=== PATIENT | male | born 1935 | race Caucasian/White ===

== ENCOUNTER 2018-02-14 12:08 | Inpatient (IN) | payer MEDICARE, OTHER ==
[~2018-02-14] VITALS: Ht 170.2 cm; Wt 104.0 kg
[2018-02-14] MEDS ORDERED: BENA20TA2 PO (14:18)
[2018-02-14] MEDS ORDERED: AMLO10TA2 PO (14:18)
[2018-02-14] MEDS ORDERED: BISO5TAB2 PO (14:18)
[2018-02-14] MEDS ORDERED: CLOP75TA PO (14:18)
[2018-02-14] MEDS ORDERED: FURO20TA3 PO (14:18)
[2018-02-14] MEDS ORDERED: ASPI-496 PO (14:18)
[2018-02-14] MEDS ORDERED: ALLO300T PO (14:18)
[2018-02-14] MEDS ORDERED: HYDR-3237 PO (14:18)
[2018-02-14] MEDS ORDERED: ISOS1TAB2 PO (14:18)
[2018-02-14] MEDS ORDERED: ATOR-2 PO (14:18)
[2018-02-14 14:42] LABS: BASOPHILS # (AUTO) 0.02 x10^3/uL (0-0.1); BASOPHILS % (AUTO) 0 % (0-1); EOSINOPHILS % (AUTO) 3 % (1-7); LYMPHOCYTES % (AUTO) 26 % (22-44); MD NO; MEAN CORPUSCULAR HEMOGLOBIN 28.7 pg (27.5-34.5); MEAN CORPUSCULAR VOLUME 87.2 fL (81-97); MEAN PLATELET VOLUME 7.4 fL (7.4-10.4); MONOCYTES # (AUTO) 0.73 x10^3/uL (0.2-0.8); MONOCYTES % (AUTO) 11 % (2-9); NEUTROPHILS # (AUTO) 3.96 x10^3/uL (1.8-6.8); NEUTROPHILS % (AUTO) 60 % (42-75); PLATELET COUNT 240 x10^3/uL (130-400); RED BLOOD COUNT 4.27 x10^6/uL (4.38-5.82); RED CELL DISTRIBUTION WIDTH 14.9 % (9.4-14.8)
[2018-02-14 14:53] LABS: INTERNATIONAL NORMALIZED RATIO 1.02 (0.93-1.1); PROTHROMBIN TIME 10.5 Seconds (9.6-11.5)
[2018-02-14 14:55] LABS: ALANINE AMINOTRANSFERASE 17 U/L (12-78); ALBUMIN 3.6 g/dL (3.4-5.0); ANION GAP 8 mmol/L (5-15); CHLORIDE 107 mmol/L (98-107); CREATININE 2.96 mg/dL (0.7-1.3)
[2018-02-14 14:57] LABS: ALKALINE PHOSPHATASE 77 U/L (45-117); BILIRUBIN,TOTAL 0.5 mg/dL (0.2-1.0); TOTAL PROTEIN 7.1 g/dL (6.4-8.2)
[2018-02-14] MEDS ORDERED: SODIUM CHLORIDE 0.9%, 500ML IVBOLUS ONE (15:30)
[2018-02-14] MEDS: SODIUM CHLORIDE 0.9% 1,000 ML IV SCH (17:27)
[2018-02-14] MEDS ORDERED: ONDANSETRON 2MG/ML, 2ML IVPush PRN (17:30)
[2018-02-14] MEDS ORDERED: hydrALAzine 20 MG/ML, 1ML IVPush PRN (17:30)
[2018-02-14] MEDS ORDERED: ACETAMINOPHEN 325 MG TABLET PO PRN (17:30)
[2018-02-14] MEDS: HEPARIN 5,000 UNITS/ML, 1ML SQ SCH (17:36)
[2018-02-14 17:38] VITALS: BP 149/74
[2018-02-14 19:34] VITALS: BP 106/52
[2018-02-14 19:47] VITALS: BP 106/55
[2018-02-14] MEDS ORDERED: ATORVASTATIN 80 MG TABLET PO SCH (21:00)
[2018-02-14] MEDS ORDERED: ATORVASTATIN 20 MG TABLET PO SCH ×2 (21:10→21:15)
[2018-02-15] VITALS (8 sets, daily range): BP systolic 119–160; BP diastolic 69–81
[2018-02-15 01:24] LABS: MICROSCOPIC NOT IND
[2018-02-15] MEDS: HEPARIN 5,000 UNITS/ML, 1ML SQ SCH ×2 (01:25→08:24)
[2018-02-15 01:27] LABS: CULTURE INDICATED? NO
[2018-02-15 01:29] LABS: CREATININE,URINE RANDOM 71.3 mg/dL
[2018-02-15 06:05] LABS: BASOPHILS # (AUTO) 0.02 x10^3/uL (0-0.1); BASOPHILS % (AUTO) 0 % (0-1); EOSINOPHILS # (AUTO) 0.23 x10^3/uL (0-0.4); EOSINOPHILS % (AUTO) 4 % (1-7); LYMPHOCYTES # (AUTO) 1.45 x10^3/uL (1-3.4); LYMPHOCYTES % (AUTO) 25 % (22-44); MD NO; MEAN CORPUSCULAR HEMOGLOBIN 28.9 pg (27.5-34.5); MEAN CORPUSCULAR HGB CONC 32.6 g/dL (33.2-36.2); MEAN CORPUSCULAR VOLUME 88.4 fL (81-97); MEAN PLATELET VOLUME 7.6 fL (7.4-10.4); MONOCYTES # (AUTO) 0.65 x10^3/uL (0.2-0.8); MONOCYTES % (AUTO) 12 % (2-9); NEUTROPHILS # (AUTO) 3.34 x10^3/uL (1.8-6.8); NEUTROPHILS % (AUTO) 59 % (42-75); PLATELET COUNT 200 x10^3/uL (130-400); RED BLOOD COUNT 4.19 x10^6/uL (4.38-5.82); RED CELL DISTRIBUTION WIDTH 15.1 % (9.4-14.8)
[2018-02-15 06:14] LABS: ANION GAP 6 mmol/L (5-15); CALCIUM 8.4 mg/dL (8.5-10.1); CHLORIDE 108 mmol/L (98-107); CREATININE 2.43 mg/dL (0.7-1.3)
[2018-02-15] MEDS: SODIUM CHLORIDE 0.9% 1,000 ML IV SCH (08:25)
[2018-02-15] MEDS ORDERED: BENAZEPRIL 20 MG TABLET PO SCH (09:00)
[2018-02-15] MEDS ORDERED: ASPIRIN 81 MG TABLET EC PO SCH (09:00)
[2018-02-15] MEDS ORDERED: CLOPIDOGREL 75 MG TABLET PO SCH (09:00)
[2018-02-15] MEDS ORDERED: AMLODIPINE 5 MG TABLET PO SCH (09:00)
== END 2018-02-15 16:40 | disposition home or self-care (01) | DRG 73 ==
LOC: ED 14:42 → EDIP 15:28 → 4EST 16:52
PROVIDERS: ADMIT Internal Medicine Pulmonary Disease; ATTEND Internal Medicine Pulmonary Disease
DX: G90.9 Disorder of the autonomic nervous system, unspecified (principal); N17.0 Acute kidney failure with tubular necrosis; I95.9 Hypotension, unspecified; D63.8 Anemia in other chronic diseases classified elsewhere; N18.3 Chronic kidney disease, stage 3 (moderate); I35.0 Nonrheumatic aortic (valve) stenosis; Z95.1 Presence of aortocoronary bypass graft; R55 Syncope and collapse; M19.90 Unspecified osteoarthritis, unspecified site; M10.9 Gout, unspecified; G56.00 Carpal tunnel syndrome, unspecified upper limb; I12.9 Hypertensive chronic kidney disease with stage 1 through stage 4 chronic kidney disease, or unspecified chronic kidney disease; G47.33 Obstructive sleep apnea (adult) (pediatric); E78.5 Hyperlipidemia, unspecified; I25.10 Atherosclerotic heart disease of native coronary artery without angina pectoris; E66.9 Obesity, unspecified; Z82.49 Family history of ischemic heart disease and other diseases of the circulatory system; Z87.891 Personal history of nicotine dependence; Z68.35 Body mass index [BMI] 35.0-35.9, adult
CPT/HCPCS: 36415; 71045; 76770; 80048; 80053; 81003; 82436; 82570; 83735; 84100; 84133; 84156; 84300; 85025; 85610; 85730; 93005; 93306; 96360; J1644; J7030; J7040